=== PATIENT | female | born 1990 | race Caucasian/White ===

== ENCOUNTER 2021-03-16 20:04 | Observation (INO) | payer OTHER ==
[2021-03-16 22:06] VITALS: BP 136/71; PULSE 91; O2SAT 99
[2021-03-16 22:17] LABS: Appearance CLEAR (CLEAR); Bilirubin NEGATIVE (NEGATIVE); Blood NEGATIVE Ery/ul (0-5); Glucose NEGATIVE (NEGATIVE); Ketones NEGATIVE (NEGATIVE); Leukocyte Esterase TRACE (NEGATIVE); Nitrite NEGATIVE (NEGATIVE); Protein,Urine Dip NEGATIVE (Negative); Specific Gravity 1.008 (1.005-1.025); Urobilinogen NEGATIVE mg/dL (0-1)
[2021-03-16 22:27] LABS: Amphetamine,Urine NEGATIVE (NEGATIVE); Barbiturate,Urine NEGATIVE (NEGATIVE); Benzodiazepine,Urine NEGATIVE (NEGATIVE); Cocaine,Urine NEGATIVE (NEGATIVE); Methadone,Urine NEGATIVE (NEGATIVE); Opiate,Urine NEGATIVE (NEGATIVE); PCP,Urine NEGATIVE (NEGATIVE); THC,Urine NEGATIVE (NEGATIVE)
== END 2021-03-16 22:00 | disposition home or self-care (01) ==
LOC: MED SURG 20:04
PROVIDERS: ADMIT Family Medicine; ATTEND Family Medicine
DX: Z34.82 Encounter for supervision of other normal pregnancy, second trimester (principal); Z3A.26 26 weeks gestation of pregnancy
CPT/HCPCS: 80307; 81001; G0378

== ENCOUNTER 2021-04-22 02:34 | Observation (INO) | payer OTHER ==
[2021-04-22 03:24] LABS: Amphetamine,Urine NEGATIVE (NEGATIVE); Barbiturate,Urine NEGATIVE (NEGATIVE); Benzodiazepine,Urine NEGATIVE (NEGATIVE); Cocaine,Urine NEGATIVE (NEGATIVE); Methadone,Urine NEGATIVE (NEGATIVE); Opiate,Urine NEGATIVE (NEGATIVE); PCP,Urine NEGATIVE (NEGATIVE); THC,Urine NEGATIVE (NEGATIVE)
[2021-04-22 03:28] LABS: Amourphous Crystal FEW /HPF (NEGATIVE); Appearance SLIGHTLY CLOUDY (CLEAR); Bacteria RARE /HPF (NEGATIVE); Bilirubin MODERATE (NEGATIVE); Blood NEGATIVE Ery/ul (0-5); Epithelial Cells FEW /HPF (FEW); Glucose 50 mg/dL (NEGATIVE); Ketones MODERATE (NEGATIVE); Leukocyte Esterase MODERATE (NEGATIVE); Mucus SLIGHT /HPF (NEGATIVE); Nitrite NEGATIVE (NEGATIVE); Protein,Urine Dip 100 (Negative); RBC 0-2 /HPF (0-2); Urobilinogen 4 mg/dL (0-1)
[2021-04-22 03:45] LABS: Basophil (Absolute #) 0.02 (0-0.4); Eosinophil % 0.6 % (0.00-5.0); Eosinophil (Absolute #) 0.07 (0-0.5); Hematocrit 37.9 % (35-47); Hemoglobin 12.8 gm/dl (12.0-16.0); Lymphocyte (Absolute #) 1.38 (1.0-4.6); Lymphocytes % 12.1 % (24.0-44.0); Mean Cell Volume 87.7 fl (78-100); Mean Corpuscular Hemoglobin 29.6 pg (26-32); Mean Corpuscular Hgb Concent. 33.8 g/dl (32-36); Mean Platelet Volume 11.1 fl (7.5-11.0); Monocyte (Absolute #) 0.68 (0.0-1.3); Monocytes % 5.9 % (0.0-12.0); Neutrophil % 81.2 % (36.0-66.0); Platelet Count 193 K/mm3 (150-450); Red Blood Count 4.32 M/mm3 (4.1-5.4); Red Cell Distribution Width 13.7 % (11.5-14.0); White Blood Count 11.5 K/mm3 (4.0-10.5)
[2021-04-22] MEDS: MORPHINE SULFATE 2 MG INJ IV ONE ×2 (03:48→05:22)
[2021-04-22 03:56] LABS: ALBUMIN 3.7 g/dL (3.5-5.0); ALKALINE PHOSPHATASE 173 U/L (38-126); AMYLASE 40 U/L (30-110); ANION GAP 11.8 MEQ/L (5-15); BLOOD UREA NITROGEN 4 mg/dL (7-17); CHLORIDE 105 mmol/L (98-107); Carbon Dioxide 23 mmol/L (22-30); Creatinine 1 0.42 mg/dL (0.52-1.04); EST GLOMERULAR FILTRATION RATE > 60.0 ML/MIN; Glucose 122 mg/dL (74-106); LIPASE 66 U/L (23-300); Potassium 3.7 mmol/L (3.5-5.1); SGOT/AST 180 U/L (14-36); SGPT/ALT 103 U/L (0-35); SODIUM 136 mmol/L (137-145); Total Protein 6.7 g/dL (6.3-8.2)
[2021-04-22 03:57] LABS: Creatinine, Urine Random 307.7 mg/dl
[2021-04-22] MEDS ORDERED: Celestone Soluspan 6MG/ML IM ONE (04:18)
--- NOTE | 2021-04-22 04:22 | PCM.HP ---
History of Present Illness - Chief Complaint Chief Complaint: OB check History of Present Illness: is a 30 year old female. 30 yo iup 31 wks with hx of gdm diet control and chronic htn on labetolol 100mg bid here for evaluation of ruq pain that began yesterday 3 pm and states it being continuous however has had this since 20 wks gestation and had been intermittent. hx of being treated with pcn for syphilis during beginning of . hx of gall bladder removal 12 years ago. denies visual disturbance at thist time, uterine contx, or srom. Medications & Allergies Home Medications: Home Medication List Vits W-Ca,Fe,FA(<1Mg) [] 1 tab PO DAILY 10/07/12 [History Confirmed 04/22/21] Famotidine [Pepcid] PO DAILY 04/22/21 [History] Labetalol HCl 100 mg [Trandate 100 MG] 100 mg PO BID 04/22/21 [History Con firmed 04/22/21] Metoclopramide HCl 5 mg [Reglan 5 MG] 5 mg PO TID 04/22/21 [History Confirmed 04/22/21] Allergies/Adverse Reactions: Allergies Allergy/AdvReac Type Severity Reaction Status Date / Time cephalexin monohydrate Allergy Verified 04/22/21 03:38 [From Keflex] ibuprofen Allergy Verified 04/22/21 03:38 naproxen Allergy Verified 04/22/21 03:38 - Past Medical History Past Medical History: Yes Neurological History: No Pertinent History ENT History: No Pertinent History Cardiac History: No Pertinent History Respiratory History: No Pertinent History Endocrine Medical History: No Pertinent History Musculoskelatal History: No Pertinent History GI Medical History: Gallbladder Disease History: No Pertinent History Pyscho-Social History: No Pertinent History Reproductive Disorders: Other - Female History Expected Date of Delivery: 06/24/21 - Past Surgical History Past Surgical History: Yes Neuro Surgical History: No Pertinent History Cardiac History: No Pertinent History Respiratory Surgery: No Pertinent History GI Surgical History: Cholecystectomy Genitourinary Surgical Hx: No Pertinent History Musculskeletal Surgical Hx: No Pertinent History Female Surgical History: No Pertinent History - Social History Smoking Status: Never smoker Exposure to second hand smoke: No Alcohol: None Drug Use: none - Physical Exam Vital Signs: Vital Signs - 24 hr Temp Pulse Resp BP Pulse Ox 04/22/21 03:00 133/62 04/22/21 02:42 97.6 F 76 22 161/72 98 Pelvic Exam: not done Results - Labs Lab/Micro Results: Lab Results-Last 24 Hours 04/22/21 04/22/21 04/22/21 Range/Units 03:05 03:05 03:42 WBC 11.5 H (4.0-10.5) K/mm3 RBC 4.32 (4.1-5.4) M/mm3 Hgb 12.8 (12.0-16.0) gm/dl Hct 37.9 (35-47) % MCV 87.7 (78-100) fl MCH 29.6 (26-32) pg MCHC 33.8 (32-36) g/dl RDW 13.7 (11.5-14.0) % Plt Count 193 (150-450) K/mm3 MPV 11.1 H (7.5-11.0) fl Gran % 81.2 H (36.0-66.0) % Eos # (Auto) 0.07 (0-0.5) Absolute Lymphs (auto) 1.38 (1.0-4.6) Absolute Monos (auto) 0.68 (0.0-1.3) Lymphocytes % 12.1 L (24.0-44.0) % Monocytes % 5.9 (0.0-12.0) % Eosinophils % 0.6 (0.00-5.0) % Basophils % 0.2 (0.0-0.4) % Absolute Granulocytes 9.30 H (1.4-6.9) Basophils # 0.02 (0-0.4) Sodium (137-145) mmol/L Potassium (3.5-5.1) mmol/L Chloride (98-107) mmol/L Carbon Dioxide (22-30) mmol/L Anion Gap (5-15) MEQ/L BUN (7-17) mg/dL Creatinine (0.52-1.04) mg/dL Estimated GFR ML/MIN Glucose (74-106) mg/dL Uric Acid (2.6-6.0) mg/dL Calcium (8.4-10.2) mg/dL Total Bilirubin (0.2-1.3) mg/dL AST (14-36) U/L ALT (0-35) U/L Alkaline Phosphatase (38-126) U/L Serum Total Protein (6.3-8.2) g/dL Albumin (3.5-5.0) g/dL Amylase (30-110) U/L Lipase (23-300) U/L Urine Color [place] (YELLOW) Urine Appearance SLIGHTLY CLOUDY (CLEAR) Urine pH 5.0 (5-6) Ur Specific [place] 1.030 (1.005-1.025) Urine Protein 100 (Negative) Urine Ketones MODERATE (NEGATIVE) Urine Blood NEGATIVE (0-5) Moy/ul Urine Nitrite NEGATIVE (NEGATIVE) Urine Bilirubin MODERATE (NEGATIVE) Urine Urobilinogen 4 (0-1) mg/dL Ur Leukocyte Esterase MODERATE (NEGATIVE) Urine WBC (Auto) 3-5 (0-5) /HPF Urine RBC (Auto) 0-2 (0-2) /HPF U Epithel Cells (Auto) FEW (FEW) /HPF Urine Bacteria (Auto) RARE (NEGATIVE) /HPF Amorphous Crystals FEW (NEGATIVE) /HPF Urine Mucus (Auto) SLIGHT (NEGATIVE) /HPF Urine Culture Reflexed YES (NO) Ur Random Creatinine mg/dl U Random Total Protein (<12) mg/dl U [place] Prot/Creat Ratio (0.0-0.15) mg/mg Urine Glucose 50 (NEGATIVE) mg/dL Urine Opiates Level NEGATIVE (NEGATIVE) Ur Methadone NEGATIVE (NEGATIVE) Urine Barbiturates NEGATIVE (NEGATIVE) Ur Phencyclidine (PCP) NEGATIVE (NEGATIVE) Urine Amphetamine NEGATIVE (NEGATIVE) U Benzodiazepine Level NEGATIVE (NEGATIVE) Urine Cocaine NEGATIVE (NEGATIVE) Urine Marijuana (THC) NEGATIVE (NEGATIVE) 04/22/21 04/22/21 04/22/21 Range/Units 03:42 03:42 03:42 WBC (4.0-10.5) K/mm3 RBC (4.1-5.4) M/mm3 Hgb (12.0-16.0) gm/dl Hct (35-47) % MCV (78-100) fl MCH (26-32) pg MCHC (32-36) g/dl RDW (11.5-14.0) % Plt Count (150-450) K/mm3 MPV (7.5-11.0) fl Gran % (36.0-66.0) % Eos # (Auto) (0-0.5) Absolute Lymphs (auto) (1.0-4.6) Absolute Monos (auto) (0.0-1.3) Lymphocytes % (24.0-44.0) % Monocytes % (0.0-12.0) % Eosinophils % (0.00-5.0) % Basophils % (0.0-0.4) % Absolute Granulocytes (1.4-6.9) Basophils # (0-0.4) Sodium 136 L (137-145) mmol/L Potassium 3.7 (3.5-5.1) mmol/L Chloride 105 (98-107) mmol/L Carbon Dioxide 23 (22-30) mmol/L Anion Gap 11.8 (5-15) MEQ/L BUN 4 L (7-17) mg/dL Creatinine 0.42 L (0.52-1.04) mg/dL Estimated GFR > 60.0 ML/MIN Glucose 122 H (74-106) mg/dL Uric Acid 3.2 (2.6-6.0) mg/dL Calcium 9.0 (8.4-10.2) mg/dL Total Bilirubin 1.50 H (0.2-1.3) mg/dL AST 180 H (14-36) U/L ALT 103 H (0-35) U/L Alkaline Phosphatase 173 H (38-126) U/L Serum Total Protein 6.7 (6.3-8.2) g/dL Albumin 3.7 (3.5-5.0) g/dL Amylase 40 (30-110) U/L Lipase 66 (23-300) U/L Urine Color (YELLOW) Urine Appearance (CLEAR) Urine pH (5-6) Ur Specific [place] (1.005-1.025) Urine Protein (Negative) Urine Ketones (NEGATIVE) Urine Blood (0-5) Moy/ul Urine Nitrite (NEGATIVE) Urine Bilirubin (NEGATIVE) Urine Urobilinogen (0-1) mg/dL Ur Leukocyte Esterase (NEGATIVE) Urine WBC (Auto) (0-5) /HPF Urine RBC (Auto) (0-2) /HPF U Epithel Cells (Auto) (FEW) /HPF Urine Bacteria (Auto) (NEGATIVE) /HPF Amorphous Crystals (NEGATIVE) /HPF Urine Mucus (Auto) (NEGATIVE) /HPF Urine Culture Reflexed (NO) Ur Random Creatinine 307.7 mg/dl U Random Total Protein 29.0 (<12) mg/dl U [place] Prot/Creat Ratio 0.09 (0.0-0.15) mg/mg Urine Glucose (NEGATIVE) mg/dL Urine Opiates Level (NEGATIVE) Ur Methadone (NEGATIVE) Urine Barbiturates (NEGATIVE) Ur Phencyclidine (PCP) (NEGATIVE) Urine Amphetamine (NEGATIVE) U Benzodiazepine Level (NEGATIVE) Urine Cocaine (NEGATIVE) Urine Marijuana (THC) (NEGATIVE) Assessment/Plan (1) Severe pre-eclampsia Current Visit: Yes Status: Acute Code(s): O14.10 - SEVERE PRE-ECLAMPSIA, UNSPECIFIED TRIMESTER (2) Right upper quadrant abdominal pain affecting Current Visit: Yes Status: Acute Code(s): O26.899 - OTH RELATED CONDITIONS, UNSPECIFIED TRIMESTER; R10.11 - RIGHT UPPER QUADRANT PAIN
[2021-04-22 04:29] LABS: INR 1.07 (0.8-3.0); PROTIME 12.6 SECONDS (9.4-12.5)
[2021-04-22] MEDS ORDERED: Lactated Ringers 1,000 ML IV SCH (04:30)
[2021-04-22] MEDS ORDERED: Magnesium Sulfate 40 Gm/1000 Ml H2O Premix*** 1,000 ML IV SCH (04:30)
[2021-04-22 04:31] LABS: PTT 28.3 SECONDS (25.1-36.5)
[2021-04-22] MEDS ORDERED: MORPHINE SULFATE 2 MG INJ IV ONE ×2 (04:39→07:05)
[2021-04-22 05:52] VITALS: O2SAT 97
[2021-04-22 08:52] VITALS: BP 115/73; PULSE 85
== END 2021-04-22 07:30 ==
LOC: MED SURG 02:34
PROVIDERS: ADMIT Obstetrics & Gynecology; ATTEND Obstetrics & Gynecology
DX: O14.13 Severe pre-eclampsia, third trimester (principal); O24.410 Gestational diabetes mellitus in pregnancy, diet controlled; O98.113 Syphilis complicating pregnancy, third trimester; Z3A.31 31 weeks gestation of pregnancy; Z79.899 Other long term (current) drug therapy
CPT/HCPCS: 36415; 80053; 80307; 81001; 82150; 82570; 83690; 83735; 84156; 84550; 85025; 85610; 85730; 87086; 96372; G0378; J0702; J2270